=== PATIENT | male | born 1995 | race Caucasian/White ===

== ENCOUNTER 2017-01-08 10:38 | Emergency (ER) | payer OTHER ==
[2017-01-08] MEDS ORDERED: LACTATED RINGERS 1,000 ML ONE (11:10)
[2017-01-08] MEDS ORDERED: DIAZEPAM 5 MG/ML SYRINGE 2 ML ONE (11:10)
[2017-01-08 11:31] LABS: BLOOD UREA NITROGEN 8 mg/dL (7-25); BUN/CREATININE RATIO 9 (6-20); GLOMERULAR FILTRATION RATE 107 mL/min (60-116)
--- NOTE | 2017-01-08 11:38 | RAD ---
Exam: Two-view chest COMPARISON: None INDICATION: Left ventricular hypertrophy on EKG, anxiety. FINDINGS: PA and lateral views of the chest were obtained. Cardiac silhouette is within normal limits. Lungs are well-inflated. There is no focal airspace disease or pleural effusion. Bones of the chest wall within normal limits. IMPRESSION: Negative two-view chest.
[2017-01-08 11:45] LABS: ACETAMINOPHEN < 10 ug/ml; SALICYLATE < 4 mg/dl (0-30)
== END 2017-01-08 12:32 | disposition home or self-care (01) ==
LOC: ED 10:38
DX: T43.622A Poisoning by amphetamines, intentional self-harm, initial encounter (principal); F41.8 Other specified anxiety disorders; I49.3 Ventricular premature depolarization; Y92.9 Unspecified place or not applicable